=== PATIENT | female | born 1995 | race Caucasian/White ===

== ENCOUNTER 2019-04-20 06:48 | Inpatient (IN) | payer BC ==
--- NOTE | 2019-04-20 07:14 | PCM.SN ---
- Free Text/Narrative Note: 0714
[2019-04-20] MEDS ORDERED: Sodium Chloride 0.9% 10 ML Syringe FLUSH PRN (07:36)
[2019-04-20] MEDS ORDERED: Nalbuphine 10 MG/ML Syringe IVPUSH PRN (07:36)
[2019-04-20] MEDS ORDERED: Ondansetron 4 MG/2 ML SDV IVPUSH PRN ×2 (07:36→08:10)
--- NOTE | 2019-04-20 07:38 | PCM.LDHP ---
L&D History of Present Illness - General Date of Service: 04/20/19 Admit Problem/Dx: Patient Status Order with Admit Dx/Problem 04/20/19 07:08 Patient Status [ADT] Routine Admission Diagnosis/Problem Admission Diagnosis/Problem 37 weeks gestation of Source of Information: Patient History Limitations: Reports: No Limitations - History of Present Illness Introduction:: Patient is a 23-year-old at 37 and one sevenths weeks gestation who presents for concerns of leaking of amniotic fluid and contractions. Estimates leaking began around midnight. 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: : 1 Para: 0 LMP (Approximate): - Past Surgical History HEENT Surgical History: Reports: Tonsillectomy Social & Family History - Tobacco Use Smoking Status *Q: Never Smoker - Alcohol Use Alcohol Use History: No - Recreational Drug Use Recreational Drug Use: No H&P Review of Systems - Review of Systems: Review Of Systems: See Below General: Reports: No Symptoms Pulmonary: Reports: No Symptoms Cardiovascular: Reports: No Symptoms Gastrointestinal: Reports: Abdominal Pain Genitourinary: Reports: No Symptoms Musculoskeletal: Reports: No Symptoms Psychiatric: Reports: No Symptoms Neurological: Reports: No Symptoms L&D Exam - Exam Exam: See Below - OB Specific Contraction Intensity: Moderate to Strong Movement: Active Heart Tones: Present Heart Tones per Min: 135 Heart Rate (FHR) Variability: Moderate (6-25 bmp) - Caro Score Caro Score Cervix Position: Anterior Caro Score Consistency: Soft Caro Score Effacement: >80% Caro Score Dilation: 3-4 cm Caro Score 's Station: -2 Caro Score Total: 10 - Exam General: Alert, Oriented, Cooperative Lungs: Clear to Auscultation, Normal Respiratory Effort Cardiovascular: Regular Rate, Regular Rhythm GI/Abdominal Exam: Soft, Non-Tender Genitourinary: Normal external exam Extremities: Normal Inspection Skin: Warm, Dry, Intact - Patient Data Result Diagrams: 04/20/19 07:52 - Problem List (1) 37 weeks gestation of SNOMED Code(s): 98985709 ICD Code: Z3A.37 - 37 WEEKS GESTATION OF Status: Acute Current Visit: Yes (2) Spontaneous rupture of membranes SNOMED Code(s): 418597480 ICD Code: QUK4878 - Status: Acute Current Visit: Yes (3) Rh negative state in antepartum period SNOMED Code(s): 224094946 ICD Code: O26.899 - OTH RELATED CONDITIONS, UNSPECIFIED TRIMESTER; Z67.91 - UNSPECIFIED BLOOD TYPE, RH NEGATIVE Status: Acute Current Visit: Yes (4) Rubella non-immune status, antepartum SNOMED Code(s): 902905652 ICD Code: O99.89 - OTH DISEASES AND CONDITIONS COMPL PREG/CHLDBRTH; Z28.3 - UNDERIMMUNIZATION STATUS Status: Acute Current Visit: Yes Problem List Initiated/Reviewed/Updated: Yes Orders Last 24hrs: Active Orders 24 hr Category Date Time Status Patient Status [ADT] Routine ADT 04/20/19 07:08 Active Activity as Tolerated [RC] PFP Care 04/20/19 07:36 Ordered Communication Order [RC] ASDIRECTED Care 04/20/19 07:36 Ordered Heart Tones [RC] ASDIRECTED Care 04/20/19 07:37 Ordered Non Stress Test [RC] PER UNIT ROUTINE Care 04/20/19 07:08 Active Notify Provider [RC] PFP Care 04/20/19 07:36 Ordered Notify Provider [RC] PRN Care 04/20/19 07:36 Ordered Peripheral IV Care [RC] . DIRECTED Care 04/20/19 07:37 Ordered Vital Signs [RC] PER UNIT ROUTINE Care 04/20/19 07:08 Active Vital Signs [RC] PER UNIT ROUTINE Care 04/20/19 07:36 Ordered Regular Diet [DIET] Diet 04/20/19 Breakfast Active AMNISURE RUPTURE MEMBRAN [BF] Routine Lab 04/20/19 07:25 Received CBC W/O DIFF,HEMOGRAM [HEME] Routine Lab 04/20/19 07:36 Ordered RAPID PLASMA REAGIN,RPR [CHEM] Routine Lab 04/20/19 07:36 Ordered TYPE AND SCREEN [BBK] Routine Lab 04/20/19 07:36 Ordered Lactated Ringers [Ringers, Lactated] 1,000 ml Med 04/20/19 07:45 Ordered IV ASDIRECTED Nalbuphine [Nubain] Med 04/20/19 07:36 Ordered 10 mg IVPUSH Q2H PRN Ondansetron [Zofran] Med 04/20/19 07:36 Ordered 4 mg IVPUSH Q4H PRN Oxytocin/Lactated Ringers [Pitocin in LR 10 Units/1,000 Med 04/20/19 07:45 Ordered ML] 10 unit in 1,000 ml IV .CONTINUOUS Sodium Chloride 0.9% [Saline Flush] Med 04/20/19 07:36 Ordered 10 ml FLUSH ASDIRECTED PRN Electronic Heart Tones Ext w TOCO [WOMSER] Ot 04/20/19 07:36 Ordered Routine Electronic Heart Tones Internal [WOMSER] Per Unit Ot 04/20/19 07:36 Ordered Routine Peripheral IV Insertion Adult [OM.PC] Routine Ot 04/20/19 07:36 Ordered Resuscitation Status Routine Resus Stat 04/20/19 07:08 Ordered Assessment/Plan Comment:: Amnisure done and positive. Will admit for labor. GBS negative. No need for antibiotics. Labs to be done. Patient desires epidural. Anticipate . Will assess need for RhoGAM following delivery. MMR prior to discharge
[2019-04-20] MEDS ORDERED: Oxytocin/Lactated Ringers 10 UNIT/1,000 ML BAG IV SCH (07:45)
[2019-04-20] MEDS: Lactated Ringers 1,000 ML IV SCH ×2 (08:00→08:50)
[2019-04-20] MEDS ORDERED: fentaNYL 100 MCG/2 ML SDV EPIDUR PRN (08:10)
[2019-04-20] MEDS ORDERED: ePHEDrine 50 MG/ML SDV IVPUSH PRN (08:10)
[2019-04-20] MEDS ORDERED: diphenhydrAMINE 50 MG/ML SDV IVPUSH PRN (08:10)
[2019-04-20] MEDS ORDERED: fentaNYL/Bupivacaine/NS 2 MCG-0.125% 250 ML EPIDUR PRN (08:10)
--- NOTE | 2019-04-20 08:20 | PCM.PREANE ---
Preanesthetic Assessment - Procedure Proposed Procedure: THUY - Anesthesia/Transfusion/Family Hx Anesthesia History: Prior Anesthesia Without Reaction Family History of Anesthesia Reaction: No Transfusion History: No Prior Transfusion(s) Intubation History: Unknown - Review of Systems General: No Symptoms Pulmonary: No Symptoms Cardiovascular: No Symptoms Gastrointestinal: Nausea, Vomiting Neurological: No Symptoms Other: Reports: None - Physical Assessment NPO Status Date: 04/20/19 NPO Status Time: 08:17 Height: 1.68 m Weight: 67.585 kg ASA Class: 2 Mental Status: Alert & Oriented x3 Airway Class: Mallampati = 1 Dentition: Reports: Normal Dentition (permanent braces ) Thyro-Mental Finger Breadths: 3 Mouth Opening Finger Breadths: 5 ROM/Head Extension: Full Lungs: Clear to Auscultation, Normal Respiratory Effort Cardiovascular: Regular Rate, Regular Rhythm - Lab Values: Laboratory Last Values WBC 19.00 K/mm3 (3.98-10.04) H 04/20/19 07:52 RBC 4.33 M/mm3 (3.98-5.22) 04/20/19 07:52 Hgb 11.6 gm/dl (11.2-15.7) 04/20/19 07:52 Hct 35.9 % (34.1-44.9) 04/20/19 07:52 MCV 82.9 fl (79.4-94.8) 04/20/19 07:52 MCH 26.8 pg (25.6-32.2) 04/20/19 07:52 MCHC 32.3 g/dl (32.2-35.5) 04/20/19 07:52 RDW Std Deviation 39.8 fL (36.4-46.3) 04/20/19 07:52 Plt Count 294 K/mm3 (182-369) 04/20/19 07:52 MPV 11.9 fl (9.4-12.3) 04/20/19 07:52 Membrane Rupture Positive H 04/20/19 07:25 - Allergies Allergies/Adverse Reactions: Allergies Allergy/AdvReac Type Severity Reaction Status Date / Time No Known Allergies Allergy Verified 04/17/19 06:42 - Blood Blood Available: No - Anesthesia Plan Pre-Op Medication Ordered: None - Acknowledgements Anesthesia Type Planned: Epidural Pt an Appropriate Candidate for the Planned Anesthesia: Yes Alternatives and Risks of Anesthesia Discussed w Pt/Guardian: Yes Pt/Guardian Understands and Agrees with Anesthesia Plan: Yes PreAnesthesia Questionnaire - HOME MEDS Home Medications: Home Meds No122/Iron/Folic Acid [ Multi Tablet] 1 each PO DAILY 04/17/19 [History] - CURRENT (IN HOUSE) MEDS Current Meds: Current Medications Diphenhydramine HCl (Benadryl) 25 mg IVPUSH Q6H PRN PRN Reason: pruritis Ephedrine Sulfate (Ephedrine Sulfate) 5 mg IVPUSH ASDIRECTED PRN PRN Reason: Hypotension Fentanyl (Sublimaze) 100 mcg EPIDUR Q3H PRN PRN Reason: Pain Fentanyl/Bupivacaine HCl (Fentanyl/Bupivacaine/Ns 2 Mcg-0.125% 250 Ml) 250 ml EPIDUR CONTINUOUS PRN PRN Reason: Pain Lactated Ringer's (Ringers, Lactated) 1,000 mls @ 100 mls/hr IV ASDIRECTED MERVIN Oxytocin/Lactated Ringer's (Pitocin In Lr 10 Units/1,000 Ml) 10 unit in 1,000 mls @ 500 mls/hr IV .CONTINUOUS MERVIN Nalbuphine HCl (Nubain) 10 mg IVPUSH Q2H PRN PRN Reason: Pain Ondansetron HCl (Zofran) 4 mg IVPUSH Q4H PRN PRN Reason: Nausea/Vomiting Ondansetron HCl (Zofran) 4 mg IVPUSH ONETIME PRN PRN Reason: Nausea/Vomiting Sodium Chloride (Saline Flush) 10 ml FLUSH ASDIRECTED PRN PRN Reason: Keep Vein Open
--- NOTE | 2019-04-20 12:15 | PCM.DEL ---
L & D Note - General Info Date of Service: 04/20/19 - Delivery Note Labor: Spontaneous Delivery Outcome: Livebirth Delivery Method: Spontaneous Vaginal Delivery-Single Delivery Mode: Spontaneous Presentation: Right Occiput Anterior (ANDRES) Nuchal Cord: None, Reduced Anesthesia Type: Epidural Amniotic Fluid Description: Clear Episiotomy Type: None Laceration: 2nd Degree Suture type: Vicryl Suture size: 2-0 Placenta: Intact, Spontaneous Cord: 3 Vessels Estimated Blood Loss: 200 : Bulb Syringe, Stimulated, [place] Used, Warmer Used Delivery Comments (Free Text/Narrative):: Patient found to be complete and began pushing. With maternal pushing effort head delivered from an ANDRES presentation. Nuchal cord present and reduced. With gentle downward traction the shoulders and body delivered. Infant placed on maternal abdomen. Cord clamped and cut. Cord blood obtained. Placenta allowed time to separate and expelled intact. Inspection of the perineum showed a 2nd degree laceration which was repaired with a 2-0 vicryl in the typical fashion - General Info Date of Service: 04/20/19 - Patient Data Vitals - Most Recent: Last Vital Signs Temp 36.7 C 04/20/19 07:08 Pulse 79 04/20/19 07:08 Resp 15 04/20/19 07:08 BP 135/64 04/20/19 07:08 Pulse Ox 100 04/20/19 07:08 Weight - Most Recent: 67.585 kg - Problem List & Annotations (1) 37 weeks gestation of SNOMED Code(s): 14136918 Code(s): Z3A.37 - 37 WEEKS GESTATION OF Status: Acute Current Visit: Yes (2) Spontaneous rupture of membranes SNOMED Code(s): 884728610 Code(s): ANK6303 - Status: Acute Current Visit: Yes (3) Rh negative state in antepartum period SNOMED Code(s): 337805449 Code(s): O26.899 - OTH RELATED CONDITIONS, UNSPECIFIED TRIMESTER; Z67.91 - UNSPECIFIED BLOOD TYPE, RH NEGATIVE Status: Acute Current Visit: Yes (4) Rubella non-immune status, antepartum SNOMED Code(s): 733504613 Code(s): O99.89 - OTH DISEASES AND CONDITIONS COMPL PREG/CHLDBRTH; Z28.3 - UNDERIMMUNIZATION STATUS Status: Acute Current Visit: Yes (5) Vaginal delivery SNOMED Code(s): 530647941 Code(s): O80 - ENCOUNTER FOR FULL-TERM UNCOMPLICATED DELIVERY Status: Acute Current Visit: Yes - Problem List Review Problem List Initiated/Reviewed/Updated: Yes - My Orders Last 24 Hours: My Active Orders 04/20/19 07:08 Non Stress Test [RC] PER UNIT ROUTINE Vital Signs [RC] PER UNIT ROUTINE Resuscitation Status Routine 04/20/19 07:36 Activity as Tolerated [RC] PFP Communication Order [RC] ASDIRECTED Notify Provider [RC] PFP Notify Provider [RC] PRN Vital Signs [RC] PER UNIT ROUTINE Nalbuphine [Nubain] 10 mg IVPUSH Q2H PRN Ondansetron [Zofran] 4 mg IVPUSH Q4H PRN Sodium Chloride 0.9% [Saline Flush] 10 ml FLUSH ASDIRECTED PRN Electronic Heart Tones Ext w TOCO [WOMSER] Routine Electronic Heart Tones Internal [WOMSER] Per Unit Routine Peripheral IV Insertion Adult [OM.PC] Routine 04/20/19 07:37 Heart Tones [RC] ASDIRECTED Peripheral IV Care [RC] . DIRECTED 04/20/19 07:45 Lactated Ringers [Ringers, Lactated] 1,000 ml IV ASDIRECTED Oxytocin/Lactated Ringers [Pitocin in LR 10 Units/1,000 ML] 10 unit in 1,000 ml IV .CONTINUOUS 04/20/19 07:52 ANTIBODY IDENTIFICATION [BBK] Routine RAPID PLASMA REAGIN,RPR [CHEM] Routine TYPE AND SCREEN [BBK] Routine 04/20/19 10:06 Admission Status [Patient Status] [ADT] Routine 04/20/19 Breakfast Regular Diet [DIET] - Assessment Assessment:: PPD#0 from - Plan Plan:: Routine cares Breast feeding Will assess baby blood type to see if additional Rhogam required. MMR prior to discharge Discharge home in 1-2 days
[2019-04-20] MEDS ORDERED: Witch Hazel Medicated Pads 40/Jar TOP PRN (12:31)
[2019-04-20] MEDS: Benzocaine/Menthol 20%-0.5% Spray 56 GM Canister TOP PRN ×2 (14:16→20:40)
[2019-04-20] MEDS ORDERED: Measles, Mumps & Rubella Vaccine 0.5 ML SDV SUBCUT ONE (17:38)
[2019-04-20] MEDS: Acetaminophen 325 MG Tab PO PRN (17:44)
[2019-04-20] MEDS: Ibuprofen 600 MG Tab PO PRN (20:41)
[2019-04-21] MEDS: Ibuprofen 600 MG Tab PO PRN ×3 (03:33→22:43)
--- NOTE | 2019-04-21 07:25 | PCM.PNPP ---
- General Info Date of Service: 04/21/19 Functional Status: Reports: Pain Controlled, Tolerating Diet, Ambulating, Urinating - Review of Systems General: Reports: No Symptoms Pulmonary: Reports: No Symptoms Cardiovascular: Reports: No Symptoms Gastrointestinal: Reports: No Symptoms Genitourinary: Reports: No Symptoms Musculoskeletal: Reports: No Symptoms Neurological: Reports: No Symptoms - Patient Data Vital Signs - Most Recent: Last Vital Signs Temp 36.8 C 04/21/19 03:25 Pulse 81 04/21/19 03:25 Resp 16 04/20/19 20:21 BP 111/56 L 04/21/19 03:25 Pulse Ox 97 04/21/19 03:25 Weight - Most Recent: 67.585 kg I&O - Last 24 Hours: Intake & Output 04/20/19 04/21/19 04/21/19 22:59 06:59 14:59 Intake Total 480 Balance 480 Lab Results - Last 24 Hours: Laboratory Results - last 24 hr 04/20/19 04/20/19 04/20/19 Range/Units 07:25 07:52 07:52 WBC 19.00 H (3.98-10.04) K/mm3 RBC 4.33 (3.98-5.22) M/mm3 Hgb 11.6 (11.2-15.7) gm/dl Hct 35.9 (34.1-44.9) % MCV 82.9 (79.4-94.8) fl MCH 26.8 (25.6-32.2) pg MCHC 32.3 (32.2-35.5) g/dl RDW Std Deviation 39.8 (36.4-46.3) fL Plt Count 294 (182-369) K/mm3 MPV 11.9 (9.4-12.3) fl Membrane Rupture Positive H RPR Non-reactive (NONREACTIVE) Blood Type Gel Antibody Screen 04/20/19 Range/Units 07:52 WBC (3.98-10.04) K/mm3 RBC (3.98-5.22) M/mm3 Hgb (11.2-15.7) gm/dl Hct (34.1-44.9) % MCV (79.4-94.8) fl MCH (25.6-32.2) pg MCHC (32.2-35.5) g/dl RDW Std Deviation (36.4-46.3) fL Plt Count (182-369) K/mm3 MPV (9.4-12.3) fl Membrane Rupture RPR (NONREACTIVE) Blood Type O NEGATIVE Gel Antibody Screen Positive Med Orders - Current: Current Medications Acetaminophen (Tylenol) 650 mg PO Q4H PRN PRN Reason: mild pain or fever Last Admin: 04/20/19 17:44 Dose: 650 mg Benzocaine/Menthol (Dermoplast Pain Relief [place]) 0 gm TOP ASDIRECTED PRN PRN Reason: Perineal Comfort Measure Last Admin: 04/20/19 20:40 Dose: 1 can Docusate Sodium (Colace) 100 mg PO BID PRN PRN Reason: Constipation Ibuprofen (Motrin) 600 mg PO Q6H PRN PRN Reason: Mild pain or fever Last Admin: 04/21/19 03:33 Dose: 600 mg Witch Irasema (Tucks) 1 pad TOP ASDIRECTED PRN PRN Reason: Perineal Comfort Measure Last Admin: 04/20/19 14:16 Dose: 1 container Discontinued Medications Diphenhydramine HCl (Benadryl) 25 mg IVPUSH Q6H PRN PRN Reason: pruritis Ephedrine Sulfate (Ephedrine Sulfate) 5 mg IVPUSH ASDIRECTED PRN PRN Reason: Hypotension Last Admin: 04/20/19 09:18 Dose: 5 mg Fentanyl (Sublimaze) 100 mcg EPIDUR Q3H PRN PRN Reason: Pain Last Admin: 04/20/19 09:08 Dose: 100 mcg Fentanyl/Bupivacaine HCl (Fentanyl/Bupivacaine/Ns 2 Mcg-0.125% 250 Ml) 250 ml EPIDUR CONTINUOUS PRN PRN Reason: Pain Last Admin: 04/20/19 09:07 Dose: 250 ml Lactated Ringer's (Ringers, Lactated) 1,000 mls @ 100 mls/hr IV ASDIRECTED MERVIN Last Admin: 04/20/19 08:50 Dose: 100 mls/hr Oxytocin/Lactated Ringer's (Pitocin In Lr 10 Units/1,000 Ml) 10 unit in 1,000 mls @ 500 mls/hr IV .CONTINUOUS MERVIN Last Admin: 04/20/19 12:00 Dose: 500 mls/hr Measles/Mumps/Rubella Vaccine Live (M-M-R Ii Vaccine) 0.5 ml SUBCUT .ONCE ONE Stop: 04/20/19 17:39 Nalbuphine HCl (Nubain) 10 mg IVPUSH Q2H PRN PRN Reason: Pain Ondansetron HCl (Zofran) 4 mg IVPUSH Q4H PRN PRN Reason: Nausea/Vomiting Ondansetron HCl (Zofran) 4 mg IVPUSH ONETIME PRN PRN Reason: Nausea/Vomiting Sodium Chloride (Saline Flush) 10 ml FLUSH ASDIRECTED PRN PRN Reason: Keep Vein Open - Infant Interaction Infant Disposition, : [place] in Room with Family Infant Interaction: Holding Feeding: Attempted ; Nursed Fair/Poor Support Person: - Recovery Exam Fundal Tone: Firm Fundal Level: 2 Fingerbreadths Below Umbilicus Fundal Placement: Midline Lochia Amount: Small, Moderate Lochia Color: Rubra/Red Perineum Description: Other (see below) Other Perinuem Description: 2nd degree repaired Episiotomy/Laceration: Approximated Bladder Status: Voiding Urinary Elimination: Voided - Exam General: Alert, Oriented, Cooperative GI/Abdominal Exam: Soft, Non-Tender Extremities: Normal Inspection Skin: Warm, Dry, Intact - Problem List & Annotations (1) 37 weeks gestation of SNOMED Code(s): 05116265 Code(s): Z3A.37 - 37 WEEKS GESTATION OF Status: Acute Current Visit: Yes (2) Spontaneous rupture of membranes SNOMED Code(s): 695313667 Code(s): OBC9066 - Status: Acute Current Visit: Yes (3) Rh negative state in antepartum period SNOMED Code(s): 265359721 Code(s): O26.899 - OTH RELATED CONDITIONS, UNSPECIFIED TRIMESTER; Z67.91 - UNSPECIFIED BLOOD TYPE, RH NEGATIVE Status: Acute Current Visit: Yes (4) Rubella non-immune status, antepartum SNOMED Code(s): 388226060 Code(s): O99.89 - OTH DISEASES AND CONDITIONS COMPL PREG/CHLDBRTH; Z28.3 - UNDERIMMUNIZATION STATUS Status: Acute Current Visit: Yes (5) Vaginal delivery SNOMED Code(s): 584459322 Code(s): O80 - ENCOUNTER FOR FULL-TERM UNCOMPLICATED DELIVERY Status: Acute Current Visit: Yes - Problem List Review Problem List Initiated/Reviewed/Updated: Yes - My Orders Last 24 Hours: My Active Orders 04/20/19 07:08 Resuscitation Status Routine 04/20/19 07:36 Vital Signs [RC] PER UNIT ROUTINE 04/20/19 07:37 Heart Tones [RC] ASDIRECTED Peripheral IV Care [RC] . DIRECTED 04/20/19 07:52 ANTIBODY IDENTIFICATION [BBK] Routine TYPE AND SCREEN [BBK] Routine 04/20/19 12:31 Activity as Tolerated [RC] PER UNIT ROUTINE Vital Signs [RC] 09,15,21,03 Acetaminophen [Tylenol] 650 mg PO Q4H PRN Benzocaine/Menthol [Dermoplast Pain Relief [place]] See Dose Instructions TOP ASDIRECTED PRN Docusate Sodium [Colace] 100 mg PO BID PRN Ibuprofen [Motrin] 600 mg PO Q6H PRN Witch Irasema [Tucks] 1 pad TOP ASDIRECTED PRN Assess Lochia [WOMSER] Per Unit Routine Assess Uterine Involution [WOMSER] Per Unit Routine Breast Pump [WOMSER] Per Unit Routine Heat Therapy [OM.PC] PRN Ice Therapy [OM.PC] Per Unit Routine Perineal Care [OM.PC] Per Unit Routine Peripheral IV Discontinue [OM.PC] Routine Sitz Bath [OM.PC] Per Unit Routine 04/20/19 17:38 Vaccines to be Administered [RC] PER UNIT ROUTINE 04/20/19 Lunch Regular Diet [DIET] 04/21/19 12:31 Heat Therapy [OM.PC] PRN - Assessment Assessment:: PPD#1 from - Plan Plan:: Routine cares Breast feeding baby Rh negative, no need for additional Rhogam MMR prior to discharge Discharge home tomorrow
--- NOTE | 2019-04-21 07:48 | PCM48HPAN ---
Post Anesthesia Note - EVALUATION WITHIN 48HRS OF ANESTHETIC Vital Signs in Normal Range: Yes Patient Participated in Evaluation: Yes Respiratory Function Stable: Yes Airway Patent: Yes Cardiovascular Function Stable: Yes Hydration Status Stable: Yes Pain Control Satisfactory: Yes Nausea and Vomiting Control Satisfactory: Yes Mental Status Recovered: Yes Vital Signs: Last Vital Signs Temp 36.8 C 04/21/19 03:25 Pulse 81 04/21/19 03:25 Resp 16 04/20/19 20:21 BP 111/56 L 04/21/19 03:25 Pulse Ox 97 04/21/19 03:25 - COMMENTS/OBSERVATIONS Free Text/Narrative:: no anesthesia complications noted
[2019-04-21] MEDS: Docusate Sodium 100 MG Cap PO PRN ×2 (08:54→21:00)
[2019-04-21] MEDS: Acetaminophen 325 MG Tab PO PRN (08:54)
--- NOTE | 2019-04-22 08:39 | PCM.DCSUM1 ---
Discharge Summary - Hospital Course Free Text/Narrative:: 23-year-old 1 now para 1001 white female who was admitted 2 days ago in active labor with spontaneous rupture membranes. She went on to have a relatively normal labor with spontaneous vaginal delivery area the nuchal cord was noted and reduced over the baby's head. She had an epidural for pain control. She had a second-degree laceration which was repaired in routine fashion. This enabled us was 200 mL. Patient is breast-feeding at the present time. She has had an unremarkable recovery. She is desiring discharge home. Diagnosis: Stroke: No - Discharge Data Discharge Date: 04/22/19 Discharge Disposition: Home, Self-Care 01 Condition: Good - Referral to Home Health Primary Care Physician: Tana Bee MD - Patient Instructions Diet: Regular Diet as Tolerated (Nursing diet was increased calories calcium is recommended) Activity: As Tolerated (No intercourse tampons until bleeding resolves) Driving: May Drive Today, Do Not Drive Showering/Bathing: May Shower (May take a bath) Notify Provider of: Fever, Increased Pain, Swelling and Redness, Nausea and/or Vomiting - Discharge Plan Home Medications: Home Meds No122/Iron/Folic Acid [ Multi Tablet] 1 each PO DAILY 04/17/19 [History] Ibuprofen [Motrin] 600 mg PO Q6H PRN tablet 04/22/19 [Rx] Referrals: Tana Bee MD [Primary Care Provider] - (Patient to call for appointment for return to clinic with Dr. MARIE) - Discharge Summary/Plan Comment DC Time >30 min.: No Discharge Summary/Plan Comment: Discharge instructions: 1. Discharge home 2. Diet, activity and follow-up discussed with patient. Recommend nursing diet with increased calories and calcium. 3. Precautions given concern increased pain, bleeding, temperature, signs/ symptoms of DVT/PE. 4. Medications per home medication was printed, discussed with and given to the patient. 5. Return to clinic-Dr. Bee at [facility] in 2 weeks. Diagnosis: Term -delivered Condition: Good - Patient Data Vitals - Most Recent: Last Vital Signs Temp 36.7 C 04/21/19 15:36 Pulse 74 04/22/19 03:42 Resp 15 04/22/19 03:42 BP 100/49 L 04/22/19 03:42 Pulse Ox 97 04/22/19 03:42 Weight - Most Recent: 67.585 kg I&O - Last 24 hours: Intake & Output 04/21/19 04/22/19 04/22/19 22:59 06:59 14:59 Intake Total 660 Balance 660 Med Orders - Current: Current Medications Acetaminophen (Tylenol) 650 mg PO Q4H PRN PRN Reason: mild pain or fever Last Admin: 04/21/19 08:54 Dose: 650 mg Benzocaine/Menthol (Dermoplast Pain Relief [place]) 0 gm TOP ASDIRECTED PRN PRN Reason: Perineal Comfort Measure Last Admin: 04/20/19 20:40 Dose: 1 can Docusate Sodium (Colace) 100 mg PO BID PRN PRN Reason: Constipation Last Admin: 04/21/19 21:00 Dose: 100 mg Ibuprofen (Motrin) 600 mg PO Q6H PRN PRN Reason: Mild pain or fever Last Admin: 04/21/19 22:43 Dose: 600 mg Witch Irasema (Tucks) 1 pad TOP ASDIRECTED PRN PRN Reason: Perineal Comfort Measure Last Admin: 04/20/19 14:16 Dose: 1 container Discontinued Medications Diphenhydramine HCl (Benadryl) 25 mg IVPUSH Q6H PRN PRN Reason: pruritis Ephedrine Sulfate (Ephedrine Sulfate) 5 mg IVPUSH ASDIRECTED PRN PRN Reason: Hypotension Last Admin: 04/20/19 09:18 Dose: 5 mg Fentanyl (Sublimaze) 100 mcg EPIDUR Q3H PRN PRN Reason: Pain Last Admin: 04/20/19 09:08 Dose: 100 mcg Fentanyl/Bupivacaine HCl (Fentanyl/Bupivacaine/Ns 2 Mcg-0.125% 250 Ml) 250 ml EPIDUR CONTINUOUS PRN PRN Reason: Pain Last Admin: 04/20/19 09:07 Dose: 250 ml Lactated Ringer's (Ringers, Lactated) 1,000 mls @ 100 mls/hr IV ASDIRECTED MERVIN Last Admin: 04/20/19 08:50 Dose: 100 mls/hr Oxytocin/Lactated Ringer's (Pitocin In Lr 10 Units/1,000 Ml) 10 unit in 1,000 mls @ 500 mls/hr IV .CONTINUOUS MERVIN Last Admin: 04/20/19 12:00 Dose: 500 mls/hr Measles/Mumps/Rubella Vaccine Live (M-M-R Ii Vaccine) 0.5 ml SUBCUT .ONCE ONE Stop: 04/20/19 17:39 Last Admin: 04/21/19 11:24 Dose: 0.5 ml Nalbuphine HCl (Nubain) 10 mg IVPUSH Q2H PRN PRN Reason: Pain Ondansetron HCl (Zofran) 4 mg IVPUSH Q4H PRN PRN Reason: Nausea/Vomiting Ondansetron HCl (Zofran) 4 mg IVPUSH ONETIME PRN PRN Reason: Nausea/Vomiting Sodium Chloride (Saline Flush) 10 ml FLUSH ASDIRECTED PRN PRN Reason: Keep Vein Open
== END 2019-04-22 13:25 | disposition home or self-care (01) | DRG 560 ==
LOC: JD.OBCHECK 06:48 → JD.OB 06:51 → JD.OBCHECK 07:08 → JD.OB 07:08 → OBSVTOIN 12:15 → JD.OB 12:16
PROVIDERS: ADMIT Obstetrics & Gynecology; ATTEND Obstetrics & Gynecology
PROC: 10E0XZZ Delivery of Products of Conception, External Approach (ICD-10-PCS; principal; 2019-04-20)
PROC: 0KQM0ZZ Repair Perineum Muscle, Open Approach (ICD-10-PCS; 2019-04-20)
PROC: 3E0R3BZ Introduction of Anesthetic Agent into Spinal Canal, Percutaneous Approach (ICD-10-PCS; 2019-04-20)
PROC: 3E0234Z Introduction of Serum, Toxoid and Vaccine into Muscle, Percutaneous Approach (ICD-10-PCS; 2019-04-21)
DX: O69.81X0 Labor and delivery complicated by cord around neck, without compression, not applicable or unspecified (principal); Z37.0 Single live birth; O70.1 Second degree perineal laceration during delivery; Z3A.37 37 weeks gestation of pregnancy; Z23 Encounter for immunization
CPT/HCPCS: 36415; 51701; 59025; 59409; 84112; 85027; 86592; 86850; 86870; 86900; 86901; 90471; 90707; A9270-GY; J2590; J3010; J7120

== ENCOUNTER 2019-08-01 00:15 | Emergency (ER) | payer BC ==
[2019-08-01] MEDS ORDERED: Tamsulosin 0.4 MG Cap.ER PO ONE (00:55)
[2019-08-01] MEDS ORDERED: HYDROmorphone 0.5 MG/0.5 ML Syringe IVPUSH ONE (00:55)
[2019-08-01] MEDS ORDERED: Ketorolac 30 MG/ML SDV IVPUSH STA (00:55)
[2019-08-01] MEDS ORDERED: Ondansetron 4 MG/2 ML SDV IVPUSH ONE (00:55)
[2019-08-01] MEDS ORDERED: Sodium Chloride 0.9% 1,000 ML IV SCH (01:00)
--- NOTE | 2019-08-01 01:00 | EDM.PDOC ---
ED HPI GENERAL MEDICAL PROBLEM - General Chief Complaint: Flank Pain Stated Complaint: DIZZY CHILLS KIDNEY AREA PAIN Time Seen by Provider: 08/01/19 00:45 Source of Information: Reports: Patient History Limitations: Reports: No Limitations - History of Present Illness INITIAL COMMENTS - FREE TEXT/NARRATIVE: Ms. Marrero is a very pleasant 23-year-old woman with no chronic medical issues, on no medications, who states that she was woken around 22:30 with severe left flank pain. She describes the pain as crampy in character, and states that it is constant. It does not radiate. It is made worse if she moves or lies in the left decubitus position. She took 1 Tylenol around 22:40 and also took a hot bath, with minimal improvement in her symptoms. She states that she vomited en route the ED. No prior similar symptoms. The patient denies recent fever, chills, sore throat, ear pain, nasal or sinus congestion, cough, dyspnea, chest pain, palpitations, nausea, vomiting, constipation, diarrhea, abdominal pain, urinary symptoms, recent weight gain or weight loss, recent bloody bowel movements or black bowel movements, recent joint aches, headaches, or rashes. Here in the ED, the patient is found to be hemodynamically stable, afebrile, saturating 100% on room air. She appears to be quite uncomfortable. The patient does not have a PCP. Her Animal Care Giver is Dr. Tana Gardner. She did not receive an influenza vaccine this season, and declined an offer to receive one here today. Left Flank Pain Score (Numeric/FACES): 8 - Related Data Allergies Allergy/AdvReac Type Severity Reaction Status Date / Time No Known Allergies Allergy Verified 08/01/19 00:28 Home Meds: Home Meds Acetaminophen/HYDROcodone [[place] 325-5 MG] 1 - 2 tab PO Q6H PRN #20 tablet 07/31 [Rx] Nitrofurantoin Macrocrystal [Nitrofurantoin] 1 cap PO Q12H #9 capsule 08/01/19 [ Rx] Ondansetron [Zofran ODT] 1 tab PO Q8H PRN #10 tab.dis 08/01/19 [Rx] Tamsulosin HCl [Flomax] 1 cap PO QAM PRN #7 cap.er.24h 08/01/19 [Rx] Past Medical History - Past Surgical History HEENT Surgical History: Reports: Tonsillectomy Social & Family History - Family History Family Medical History: Unobtainable - Tobacco Use Smoking Status *Q: Never Smoker Second Hand Smoke Exposure: No - Caffeine Use Caffeine Use: Reports: Coffee - Alcohol Use Alcohol Use History: No - Recreational Drug Use Recreational Drug Use: No - Living Situation & Occupation Living situation: Reports: Single, with Significant Other (Fianc), with Family (Daughter) Occupation: Employed (clinical education specialist, [employer]) ED ROS GENERAL - Review of Systems Review Of Systems: Comprehensive ROS is negative, except as noted in HPI. ED EXAM, RENAL/ - Physical Exam Exam: See Below Exam Limited By: No Limitations General Appearance: Alert, Mild Distress (appears uncomfortable), Thin Eye Exam: Bilateral Eye: EOMI, Normal Inspection Ears: Normal External Exam, Hearing Grossly Normal Nose: Normal Inspection Throat/Mouth: Normal Inspection, Normal Lips, Normal Voice, No Airway Compromise Head: Atraumatic, Normocephalic Neck: Normal Inspection, Full Range of Motion Respiratory/Chest: No Respiratory Distress, Lungs Clear, Normal Breath Sounds, No Accessory Muscle Use Cardiovascular: Normal Peripheral Pulses, Regular Rate, Rhythm, No Edema, No Gallop, No JVD, No Murmur, No Rub GI/Abdominal: Normal Bowel Sounds, Soft, No Organomegaly, No Distention, No Abnormal Bruit, No Mass, Tender (Palpation of the left lower quadrant induces pain in the left flank, but no actual abdominal tenderness.) (Female) Exam: Deferred Rectal (Female) Exam: Deferred Back Exam: Normal Inspection, Full Range of Motion, CVA Tenderness (L). No: CVA Tenderness (R) Extremities: Normal Inspection, Normal Range of Motion, No Pedal Edema, Normal Capillary Refill Neurological: Alert, Oriented, Normal Cognition, No Motor/Sensory Deficits Psychiatric: Normal Affect Skin Exam: Warm, Dry, Intact, Normal Color, No Rash Course - Vital Signs Last Recorded V/S: Last Vital Signs Temp 36.4 C 08/01/19 00:26 Pulse 72 08/01/19 00:26 Resp 16 08/01/19 00:26 BP 123/58 L 08/01/19 00:26 Pulse Ox 100 08/01/19 00:26 - Orders/Labs/Meds Orders: Active Orders 24 hr Category Date Time Status Strain Urine [RC] ASDIRECTED Care 08/01/19 04:10 Ordered Abdomen Pelvis wo Cont [CT] Stat Exams 08/01/19 00:55 Taken CULTURE URINE [RM] Stat Lab 08/01/19 04:06 Ordered Sodium Chloride 0.9% [Normal Saline] 1,000 ml Med 08/01/19 01:00 Active IV ASDIRECTED Medication Orders Sodium Chloride (Normal Saline) 1,000 mls @ 150 mls/hr IV ASDIRECTED MERVIN Last Admin: 08/01/19 01:04 Dose: 150 mls/hr Labs: Laboratory Tests 08/01/19 08/01/19 Range/Units 00:30 03:48 HCG, Qual Negative (NEGATIVE) Urine Color Dark yellow (Yellow) Urine Appearance Cloudy H (Clear) Urine pH 6.0 (5.0-8.0) Ur Specific [place] > or = 1.030 (1.005-1.030) Urine Protein 2+ H (Negative) Urine Glucose (UA) Negative (Negative) Urine Ketones 3+ H (Negative) Urine Occult Blood Negative (Negative) Urine Nitrite Negative (Negative) Urine Bilirubin 1+ H (Negative) Urine Urobilinogen 0.2 (0.2-1.0) Ur Leukocyte Esterase 1+ H (Negative) Urine RBC 0-5 (0-5) /hpf Urine WBC 5-10 H (0-5) /hpf Ur Squamous Epith Cells 5-10 H (0-5) /hpf Amorphous Sediment Few H (NOT SEEN) /hpf Urine Bacteria Moderate H (FEW) /hpf Urine Mucus Many H (FEW) /hpf Meds: Medications Generic Name Dose Route Start Last Admin Trade Name Freq PRN Reason Stop Dose Admin Sodium Chloride 1,000 mls @ 150 mls/hr 08/01/19 01:00 08/01/19 01:04 Normal Saline IV 150 mls/hr ASDIRECTED MERVIN Administration Discontinued Medications Generic Name Dose Route Start Last Admin Trade Name Freq PRN Reason Stop Dose Admin Hydromorphone HCl 0.5 mg 08/01/19 00:55 08/01/19 01:05 Dilaudid IVPUSH 08/01/19 00:56 0.5 mg ONETIME ONE Administration Ketorolac Tromethamine 30 mg 08/01/19 00:55 08/01/19 01:05 Toradol IVPUSH 08/01/19 00:56 30 mg ONETIME STA Administration Nitrofurantoin Macrocrystals 100 mg 08/01/19 04:09 Macrobid PO 08/01/19 04:10 ONETIME STA Ondansetron HCl 4 mg 08/01/19 00:55 08/01/19 01:05 Zofran IVPUSH 08/01/19 00:56 4 mg ONETIME ONE Administration Tamsulosin HCl 0.4 mg 08/01/19 00:55 Flomax PO 08/01/19 00:56 ONETIME ONE - Re-Assessments/Exams Free Text/Narrative Re-Assessment/Exam: 08/01/19 00:57 The patient's history and physical exam are strongly suggestive of a left ureterolith. I have ordered a urinalysis, urine test, and a CT of the abdomen and pelvis without contrast to evaluate. In the meantime, the patient will be treated with IV Dilaudid, oral Flomax, IV Toradol, IV Zofran, and IV fluid. 08/01/19 02:34 The patient's serum qualitative hCG is negative. CT of the abdomen and pelvis without contrast as read by [facility] as "3 mm obstructing stone at the left ureteral vesicle junction causing hydronephrosis of the left kidney as well as hydroureter." Her urinalysis results are still pending. 08/01/19 03:27 Test results discussed with the patient. At 3 mm, the patient will most likely pass the stone on her own. The patient has not yet provided a urine sample, and before I discharge her home, I want to be certain that she does not have a UTI, because that would change her management. The patient will work on providing a sample. 08/01/19 04:10 The patient's urinalysis is remarkable for cloudy appearance, occult blood negative with 0-5 RBCs, 1+ leukocyte esterase with 5-10 WBCs, nitrate negative with moderate bacteria, and 5-10 squamous epithelial cells. Based on the above, I have ordered a urine culture, and will start the patient on nitrofurantoin. I will then discharge the patient home with prescriptions for [place], Flomax, Zofran, and nitrofurantoin. The patient is to stay adequately hydrated and strain all of her urine. I would like her to follow-up with Dr. Gardner in 3 days, to check on her urine culture results, and I will refer her to Urology, in the event that she is unable to pass the stone. Departure - Departure Time of Disposition: 04:15 Disposition: Home, Self-Care 01 Condition: Good Clinical Impression: Ureterolithiasis, UTI (urinary tract infection) - Discharge Information *PRESCRIPTION DRUG MONITORING PROGRAM REVIEWED*: Not Applicable *COPY OF PRESCRIPTION DRUG MONITORING REPORT IN PATIENT [place]: Not Applicable Prescriptions: Acetaminophen/HYDROcodone [[place] 325-5 MG] 1 - 2 tab PO Q6H PRN #20 tablet PRN Reason: Pain (Severe 7-10) Nitrofurantoin Macrocrystal [Nitrofurantoin] 1 cap PO Q12H #9 capsule Ondansetron [Zofran ODT] 1 tab PO Q8H PRN #10 tab.dis PRN Reason: Nausea/Vomiting Tamsulosin HCl [Flomax] 1 cap PO QAM PRN #7 cap.er.24h PRN Reason: Pain Referrals: Tana Bee MD [Physician] - Kaden James MD [Ordering Only Provider] - Forms: ED Department Discharge Additional Instructions: You were seen in the emergency room after waking up with severe left flank pain. Work-up in the ER included a urinalysis, a test, and a CT scan of your abdomen and pelvis without contrast. Your CT scan confirmed that your pain is due to a 3 mm stone located at the junction of your left ureter and bladder. Based on the size and location of the stone, you will most likely pass it on your own. We recommend that you take [id number] ibuprofen, 3 tablets (600 mg) every 8 hours, with food, [id number]. You may take 1 to 2 tablets of the opioid [place] up to every 6 hours, as needed for pain not relieved by ibuprofen. If you take [place], do not drive or operate heavy machinery for 12 hours. [place] may cause constipation, so consider taking a stool softener. Take 1 tablet of the anti-spasm medicine Flomax every morning, starting Wednesday morning, 08/02/2019. You may dissolve 1 tablet of the anti-nausea medicine Zofran on your tongue up to every 8 hours, as needed for nausea/vomiting. Stay adequately hydrated, and strain all of your urine. If you capture the stone, take it to your doctor for analysis. Your urinalysis suggest that you might have a urinary tract infection. A sample of your urine was sent for culture. You have been started on the antibiotic nitrofurantoin, and a prescription for nitrofurantoin has been provided to you. Take 1 tablet of nitrofurantoin every 12 hours, starting this evening, 08/01/2019. Finish the entire prescription unless told otherwise by your doctor. We recommend that you contact the office of your Animal Care Giver, Dr. Tana Gardner, on Wednesday morning, 08/04/2019, to have them check on your urine culture results. If the culture returns negative, you can stop taking the nitrofurantoin. If the urine culture returns positive, they can tell you if you are on the correct antibiotic or not. If you have not passed the stone after a week, please follow-up with the Urologist Jg Chiang. If any other problems, please do not hesitate to return to the ER. Sepsis Event Note - Evaluation Sepsis Screening Result: No Definite Risk - Focused Exam Vital Signs: Vital Signs Temp Pulse Resp BP Pulse Ox 08/01/19 00:26 36.4 C 72 16 123/58 L 100 Date Exam was Performed: 08/01/19 Time Exam was Performed: 04:10 - My Orders Last 24 Hours: My Active Orders 08/01/19 00:55 Abdomen Pelvis wo Cont [CT] Stat 08/01/19 01:00 Sodium Chloride 0.9% [Normal Saline] 1,000 ml IV ASDIRECTED 08/01/19 04:06 CULTURE URINE [RM] Stat 08/01/19 04:10 Strain Urine [RC] ASDIRECTED - Assessment/Plan Last 24 Hours: My Active Orders 08/01/19 00:55 Abdomen Pelvis wo Cont [CT] Stat 08/01/19 01:00 Sodium Chloride 0.9% [Normal Saline] 1,000 ml IV ASDIRECTED 08/01/19 04:06 CULTURE URINE [RM] Stat 08/01/19 04:10 Strain Urine [RC] ASDIRECTED
[2019-08-01] MEDS ORDERED: Nitrofurantoin Monohydrate/Macrocrystalline 100 MG Cap PO STA (04:09)
--- NOTE | 2019-08-01 08:37 | CT ---
CT abdomen and pelvis Technique: Multiple axial sections were obtained from above the dome of the diaphragm inferiorly through the pubic symphysis. Intravenous and oral contrast not utilized. Study has been performed as a ureteral stone protocol. Findings: Left ureter is prominent in size. This finding is caused by a 3 mm obstructing stone within the distal left ureter located near the UVJ. No other abnormal calcifications are seen along the course of the ureters. Vague calcifications are seen within the renal pyramids of both kidneys raising the possibility of medullary sponge kidney. Other findings: Visualized lung bases show nothing acute. Noncontrast appearance of the liver and spleen appear within normal limits. Adrenal glands show no nodule. Pancreas is within normal limits. Gallbladder contains no calcified gallstones. Aorta shows no aneurysm. No retroperitoneal adenopathy or mesenteric abnormalities are seen. No pelvic mass or adenopathy is seen. No free fluid or inflammatory change is identified. Appendix is questionably visualized which is normal in size. No free fluid or inflammatory change is seen. Bone window settings were reviewed which appear within normal limits for the patient's age. Impression: 1. Mildly dilated left ureter caused by a 3 mm obstructing stone within the distal left ureter at the UVJ. 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 3. Other findings believed to be normal as noted above. Diagnostic code #3 This report was dictated in MDT I agree with preliminary report from [facility], finalized on 08/01/19, 3:21 AM Central Time
== END 2019-08-01 04:40 | disposition home or self-care (01) ==
LOC: JD.ED 00:15
DX: N20.1 Calculus of ureter (principal); N39.0 Urinary tract infection, site not specified
CPT/HCPCS: 36415; 74176; 81001; 84703; 87086; 96361; 96374; 96375; 99284; A9270; J1170; J1885; J2405; J7030; 87088

== ENCOUNTER 2019-12-13 12:33 | Emergency (ER) | payer BC ==
[2019-12-13] MEDS ORDERED: Sodium Chloride 0.9% 10 ML Syringe FLUSH PRN (12:54)
--- NOTE | 2019-12-13 13:56 | EDM.PDOC ---
ED HPI GENERAL MEDICAL PROBLEM - General Chief Complaint: CLINICAL LABORATORY SCIENTIST Problem Stated Complaint: HEAVY BLEEDING ([id number] ) Time Seen by Provider: 12/13/19 12:50 Source of Information: Reports: Patient History Limitations: Reports: No Limitations - History of Present Illness INITIAL COMMENTS - FREE TEXT/NARRATIVE: Patient is a 24-year-old female, , 11 weeks gestation who presents to the emergency department with complaints of vaginal bleeding. Symptoms started around 10:00 this morning. She states initially it was some light spotting, however she did have a gush of blood prior to coming to the ER. Bleeding has not been significant enough to completely saturate a pad. She does have some mild suprapubic cramping that she states is worse with movement. She denies any low back pain. She saw her primary care provider, Dr. Gardner, last Wednesday and everything was found to be normal. She has not had an early ultrasound completed thus far. She denies any urinary symptoms. She is unsure of her blood type, however states that she did have RhoGam with her previous . Lower Abdominal Pain Score (Numeric/FACES): 3 - Related Data Allergies Allergy/AdvReac Type Severity Reaction Status Date / Time No Known Allergies Allergy Verified 08/01/19 00:28 Home Meds: Home Meds Ondansetron [Zofran ODT] 1 tab PO Q8H PRN #10 tab.dis 08/01/19 [Rx] Past Medical History CLINICAL LABORATORY SCIENTIST History: Reports: - Past Surgical History HEENT Surgical History: Reports: Tonsillectomy Social & Family History - Family History Family Medical History: Unobtainable - Tobacco Use Smoking Status *Q: Never Smoker - Caffeine Use Caffeine Use: Reports: Coffee - Living Situation & Occupation Living situation: Reports: Single, with Significant Other (Fianc), with Family (Daughter) Occupation: Employed (visitor services specialist, [employer]) ED ROS GENERAL - Review of Systems Review Of Systems: Comprehensive ROS is negative, except as noted in HPI. ED EXAM - Physical Exam Exam: See Below Exam Limited By: No Limitations General Appearance: Alert, WD/WN, No Apparent Distress Respiratory/Chest: No Respiratory Distress, Lungs Clear, Normal Breath Sounds, No Accessory Muscle Use, Chest Non-Tender Cardiovascular: Normal Peripheral Pulses, Regular Rate, Rhythm, No Edema, No Gallop, No JVD, No Murmur, No Rub (Female) Exam: Vaginal Bleeding (scant amount). No: Cervical Dilatation, Cervical Lesions, Products of Conception, Tissue Present in Cervix/Vagina, Vaginal Lesions, Vaginal Tears Heart Tones: Present Heart Tones per Min: 172 (per transabdominal u/s) Extremities: Normal Inspection, Normal Range of Motion, Non-Tender, Normal Capillary Refill, No Pedal Edema Neurological: Alert, Oriented, CN II-XII Intact, Normal Cognition, Normal Gait, Normal Reflexes, No Motor/Sensory Deficits Psychiatric: Normal Affect, Normal Mood Skin Exam: Warm, Dry, Intact, Normal Color, No Rash Course - Vital Signs Last Recorded V/S: Last Vital Signs Temp 98.4 F 12/13/19 12:46 Pulse 88 12/13/19 12:46 Resp 16 12/13/19 12:46 BP 121/67 12/13/19 12:46 Pulse Ox 97 12/13/19 12:46 - Orders/Labs/Meds Orders: Active Orders 24 hr Category Date Time Status Pelvic Exam, Set Up [RC] ASDIRECTED Care 12/13/19 13:33 Active Peripheral IV Care [RC] . DIRECTED Care 12/13/19 12:55 Active UA W/MICROSCOPIC [URIN] Stat Lab 12/13/19 14:35 Results Sodium Chloride 0.9% [Saline Flush] Med 12/13/19 12:54 Active 10 ml FLUSH ASDIRECTED PRN Peripheral IV Insertion Adult [OM.PC] Stat Oth 12/13/19 12:54 Ordered Medication Orders Sodium Chloride (Saline Flush) 10 ml FLUSH ASDIRECTED PRN PRN Reason: Keep Vein Open Last Admin: 12/13/19 14:03 Dose: 10 ml Documented by: ASAD Labs: Laboratory Tests 12/13/19 12/13/19 12/13/19 Range/Units 12:45 12:45 12:45 WBC 15.52 H (3.98-10.04) K/mm3 RBC 4.50 (3.98-5.22) M/mm3 Hgb 12.7 (11.2-15.7) gm/dl Hct 38.1 (34.1-44.9) % MCV 84.7 (79.4-94.8) fl MCH 28.2 (25.6-32.2) pg MCHC 33.3 (32.2-35.5) g/dl RDW Std Deviation 40.7 (36.4-46.3) fL Plt Count 335 (182-369) K/mm3 MPV 11.0 (9.4-12.3) fl Neut % (Auto) 77.1 H (34.0-71.1) % Lymph % (Auto) 13.3 L (19.3-51.7) % [place] % (Auto) 7.7 (4.7-12.5) % Eos % (Auto) 1.2 (0.7-5.8) Baso % (Auto) 0.4 (0.1-1.2) % Neut # (Auto) 11.98 H (1.56-6.13) K/mm3 Lymph # (Auto) 2.07 (1.18-3.74) K/mm3 [place] # (Auto) 1.19 H (0.24-0.36) K/mm3 Eos # (Auto) 0.18 (0.04-0.36) K/mm3 Baso # (Auto) 0.06 (0.01-0.08) K/mm3 Manual Slide Review Abnormal smear Sodium 133 L (136-145) mEq/L Potassium 3.8 (3.5-5.1) mEq/L Chloride 101 (98-107) mEq/L Carbon Dioxide 23 (21-32) mEq/L Anion Gap 12.8 (5-15) BUN 10 (7-18) mg/dL Creatinine 0.6 (0.55-1.02) mg/dL Est Cr Clr Drug Dosing 126.30 mL/min Estimated GFR (MDRD) > 60 (>60) mL/min BUN/Creatinine Ratio 16.7 (14-18) Glucose 116 H (74-106) mg/dL Calcium 8.6 (8.5-10.1) mg/dL Total Bilirubin 1.6 H (0.2-1.0) mg/dL AST 12 L (15-37) U/L ALT 21 (14-59) U/L Alkaline Phosphatase 66 (46-116) U/L Total Protein 7.4 (6.4-8.2) g/dl Albumin 3.5 (3.4-5.0) g/dl Globulin 3.9 gm/dL Albumin/Globulin Ratio 0.9 L (1-2) HCG, Quant 977158.0 mIU/mL Urine Color (Yellow) Urine Appearance (Clear) Urine pH (5.0-8.0) Ur Specific [place] (1.005-1.030) Urine Protein (Negative) Urine Glucose (UA) (Negative) Urine Ketones (Negative) Urine Occult Blood (Negative) Urine Nitrite (Negative) Urine Bilirubin (Negative) Urine Urobilinogen (0.2-1.0) Ur Leukocyte Esterase (Negative) Blood Type Cancelled Gel Antibody Screen Cancelled Rhogam Indicated 12/13/19 12/13/19 Range/Units 12:45 14:35 WBC (3.98-10.04) K/mm3 RBC (3.98-5.22) M/mm3 Hgb (11.2-15.7) gm/dl Hct (34.1-44.9) % MCV (79.4-94.8) fl MCH (25.6-32.2) pg MCHC (32.2-35.5) g/dl RDW Std Deviation (36.4-46.3) fL Plt Count (182-369) K/mm3 MPV (9.4-12.3) fl Neut % (Auto) (34.0-71.1) % Lymph % (Auto) (19.3-51.7) % [place] % (Auto) (4.7-12.5) % Eos % (Auto) (0.7-5.8) Baso % (Auto) (0.1-1.2) % Neut # (Auto) (1.56-6.13) K/mm3 Lymph # (Auto) (1.18-3.74) K/mm3 [place] # (Auto) (0.24-0.36) K/mm3 Eos # (Auto) (0.04-0.36) K/mm3 Baso # (Auto) (0.01-0.08) K/mm3 Manual Slide Review Sodium (136-145) mEq/L Potassium (3.5-5.1) mEq/L Chloride (98-107) mEq/L Carbon Dioxide (21-32) mEq/L Anion Gap (5-15) BUN (7-18) mg/dL Creatinine (0.55-1.02) mg/dL Est Cr Clr Drug Dosing mL/min Estimated GFR (MDRD) (>60) mL/min BUN/Creatinine Ratio (14-18) Glucose (74-106) mg/dL Calcium (8.5-10.1) mg/dL Total Bilirubin (0.2-1.0) mg/dL AST (15-37) U/L ALT (14-59) U/L Alkaline Phosphatase (46-116) U/L Total Protein (6.4-8.2) g/dl Albumin (3.4-5.0) g/dl Globulin gm/dL Albumin/Globulin Ratio (1-2) HCG, Quant mIU/mL Urine Color Yellow (Yellow) Urine Appearance Slt cloudy H (Clear) Urine pH 6.5 (5.0-8.0) Ur Specific [place] 1.025 (1.005-1.030) Urine Protein Negative (Negative) Urine Glucose (UA) Trace H (Negative) Urine Ketones Negative (Negative) Urine Occult Blood 2+ H (Negative) Urine Nitrite Negative (Negative) Urine Bilirubin Negative (Negative) Urine Urobilinogen 1.0 (0.2-1.0) Ur Leukocyte Esterase Negative (Negative) Blood Type O NEGATIVE Gel Antibody Screen Negative Rhogam Indicated Yes Meds: Medications Generic Name Dose Route Start Last Admin Trade Name Freq PRN Reason Stop Dose Admin Sodium Chloride 10 ml 12/13/19 12:54 12/13/19 14:03 Saline Flush FLUSH 10 ml ASDIRECTED PRN Administration Keep Vein Open - Re-Assessments/Exams Free Text/Narrative Re-Assessment/Exam: 12/13/19 15:03 Hematology was significant for WBC elevated at 15.52, sodium 133, glucose 116, total bili 1.6, hCG appropriately elevated at 148,661. Urinalysis was negative for infection. Ultrasound showed a single intrauterine gestation measuring 11 weeks 2 days. Heart rate 172. There is a minimal subchorionic hemorrhage present. Pelvic exam showed a closed cervical office with scant amount of active bleeding. Discussed with patient that the likely cause of her bleeding is the subchorionic hemorrhage. She is O-, therefore RhoGam will be given today. Recommend that she follow-up with her CLINICAL LABORATORY SCIENTIST at her next available appointment. Return to ER for any worsening or concerning symptoms. Discharge instructions as documented. Departure - Departure Time of Disposition: 15:03 Disposition: Home, Self-Care 01 Condition: Good Clinical Impression: Subchorionic hemorrhage Qualifiers: Fetus number: single or unspecified fetus Trimester: first trimester Qualified Code(s): O41.8X10 - Other specified disorders of amniotic fluid and membranes, first trimester, not applicable or unspecified; O46.8X1 - Other antepartum hemorrhage, first trimester - Discharge Information *PRESCRIPTION DRUG MONITORING PROGRAM REVIEWED*: No *COPY OF PRESCRIPTION DRUG MONITORING REPORT IN PATIENT [place]: No Instructions: Subchorionic Hematoma Referrals: Tana Bee MD [Primary Care Provider] - Forms: ED Department Discharge Additional Instructions: You were seen in the emergency department today for vaginal bleeding in early . Your work-up included blood work, urinalysis, and an ultrasound. Results of your work-up showed that you have a small subchorionic hemorrhage which is likely the cause of your bleeding. There is no sign that you are actively miscarrying, however this does increase the possibility of a miscarriage in the future. Bleeding associated with a subchorionic hemorrhage will generally resolve over the course of a few days. Because your blood type is O-, you did receive an injection of RhoGam today. If the bleeding should become significant enough to where you are saturating a pad an hour for 2 or more hours, or you experience any other symptoms of concern, would recommend that you return to the emergency department. It is recommended that you contact your CLINICAL LABORATORY SCIENTIST to schedule a follow-up at her next available visit to discuss today's occurrences. Return to the ER as needed. Sepsis Event Note (ED) - Evaluation Sepsis Screening Result: No Definite Risk - Focused Exam Vital Signs: Vital Signs Temp Pulse Resp BP Pulse Ox 12/13/19 12:46 98.4 F 88 16 121/67 97 - My Orders Last 24 Hours: My Active Orders 12/13/19 12:54 Sodium Chloride 0.9% [Saline Flush] 10 ml FLUSH ASDIRECTED PRN Peripheral IV Insertion Adult [OM.PC] Stat 12/13/19 12:55 Peripheral IV Care [RC] . DIRECTED 12/13/19 13:33 Pelvic Exam, Set Up [RC] ASDIRECTED 12/13/19 14:35 UA W/MICROSCOPIC [URIN] Stat - Assessment/Plan Last 24 Hours: My Active Orders 12/13/19 12:54 Sodium Chloride 0.9% [Saline Flush] 10 ml FLUSH ASDIRECTED PRN Peripheral IV Insertion Adult [OM.PC] Stat 12/13/19 12:55 Peripheral IV Care [RC] . DIRECTED 12/13/19 13:33 Pelvic Exam, Set Up [RC] ASDIRECTED 12/13/19 14:35 UA W/MICROSCOPIC [URIN] Stat
--- NOTE | 2019-12-13 14:09 | US ---
1st trimester obstetrical ultrasound: Multiple real-time images were obtained transabdominally. Comparison: No previous obstetrical imaging for current is available. Dates: Current ultrasound: JODI 07/01/20, gestational age 11 weeks 2 days Single intrauterine gestation is seen. Amniotic fluid volume is normal. Embryo is identified. Minimal subchorionic hemorrhage is noted. Maternal ovaries are seen which appear within normal limits. Measurements: [place]-rump length: 4.35 cm - 11 weeks 2 days Heart rate: 172 bpm Impression: 1. Single intrauterine gestation. Dates as noted above. 2. Minimal subchorionic hemorrhage. Diagnostic code #3 This report was dictated in MDT
== END 2019-12-13 15:20 | disposition home or self-care (01) ==
LOC: JD.ED 12:33
DX: O20.8 Other hemorrhage in early pregnancy (principal); Z3A.11 11 weeks gestation of pregnancy
CPT/HCPCS: 36415; 76801; 80053; 81001; 84702; 85025; 86850; 86900; 86901; 99284; J2790

== ENCOUNTER 2020-06-01 09:41 | Inpatient (IN) | payer OTHER ==
[~2020-06-01 09:41] MED LIST: Bupivacaine 0.25% 10 ML SDV ONE
[2020-06-01] MEDS ORDERED: Nalbuphine 10 MG/1 ML Vial IVPUSH PRN (10:21)
[2020-06-01] MEDS ORDERED: Ondansetron 4 MG/2 ML SDV IVPUSH PRN (10:21)
[2020-06-01] MEDS ORDERED: Sodium Chloride 0.9% 10 ML Syringe FLUSH PRN (10:21)
[2020-06-01] MEDS ORDERED: Oxytocin/Lactated Ringers 10 UNIT/1,000 ML BAG IV SCH (10:30)
[2020-06-01] MEDS: Lactated Ringers 1,000 ML IV SCH ×3 (10:36→13:09)
[2020-06-01] MEDS ORDERED: fentaNYL 100 MCG/2 ML SDV EPIDUR PRN (10:44)
[2020-06-01] MEDS ORDERED: Bupivacaine/fentaNYL/NS 100 ML Bag EPIDUR PRN (10:44)
[2020-06-01] MEDS ORDERED: ePHEDrine 50 MG/ML SDV IVPUSH PRN (10:44)
[2020-06-01] MEDS ORDERED: diphenhydrAMINE 50 MG/ML SDV IVPUSH PRN (10:44)
[2020-06-01] MEDS ORDERED: Ampicillin 2 GM in Sodium Chloride 0.9% 100 ML IV ONE (10:47)
[2020-06-01] MEDS ORDERED: Ampicillin 2 GM AdvVial IV ONE (10:49)
--- NOTE | 2020-06-01 11:04 | PCM.LDHP ---
L&D History of Present Illness - General Date of Service: 06/01/20 Admit Problem/Dx: Patient Status Order with Admit Dx/Problem 06/01/20 09:50 Patient Status [ADT] Routine 06/01/20 10:21 Patient Status [ADT] Routine Admission Diagnosis/Problem Admission Diagnosis/Problem 06/01/20 10:51 Delicia is a 24-year-old 2 para 1-0-0-1 white female who is evaluated in labor and delivery at 35-5/7 weeks gestational age with an JODI of 07/01/2020 for complaints of SROM clear amniotic fluid and contractions. AmniSure has returned positive and patient has advanced cervical dilation of 5+ centimeters, 80% effaced, -2 station, bag of epps still present, anterior position, cervix soft and cephalic presentation. Source of Information: Patient History Limitations: Reports: No Limitations - History of Present Illness Introduction:: Delicia is a 24-year-old 2 para 1-0-0-1 white female who is evaluated in labor and delivery at 35-5/7 weeks gestational age with an JODI of 07/01/2020 for complaints of SROM clear amniotic fluid and contractions. AmniSure has returned positive and patient has advanced cervical dilation of 5+ centimeters, 80% effaced, -2 station, bag of epps still present, anterior position, cervix soft and cephalic presentation. Reports that leakage of fluid started last even ing continued with small amounts intermittently occurring. She started contractions within the last 1 to 2 hours. He has been active. REHABILITATION MEDICINE PHYSICIAN history: Delicia is a 2 para 1-0-0-1. Patient had normal menarche at approximately age 13. Cycles are regular. Her working JODI of 07/01/2020 was based upon an exact certain LMP starting 09/25/2019 and supported by ultrasounds during the . Her previous obstetric history includes delivery of a female at 37 weeks gestational age approximately 13 months prior to this date. She denied any abnormal Pap smears or STIs. course. Patient was seen for her first visit on 12/05/2019 at 10-1/7 weeks. She was seen on a regular basis throughout the . Her weight gain was from 120 to 147 pounds and fundal height growth was appropriate. Vital signs remained stable throughout the . Laboratory testing in showed her to be O- with a negative antibody screen. First hemoglobin was 12.9 g/dL and platelets are 332,000. She is rubella immune. RPR was nonreactive. Hepatitis B surface antigen and hepatitis C assays were both negative. Chlamydia and gonorrhea tests were both negative. TSH at prior to the on 09/28/2018 was normal at 0.81 microunits/mL. Her 1 hour GTT was elevated at 155 mg/dL but her 3-hour glucose tolerance test was normal. Second trimester hemoglobin is 11.3 g/dL. Platelets are 333,000. Group B strep screen has not been performed. Allergies: None Medications: 1. vitamins Past medical history: 1. : 13 months ago 2. 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 3. reports history of renal lithiasis. Past surgical history: 1. Tonsillectomy Family history: Mother and father are alive and well. Patient has 5 half siblings all are alive and well. Maternal grandmother is alive and well. Maternal grandfather is at a relatively young agepatient thinks it might have been an CT. Paternal grandmother with history of cardiac arrhythmia. Paternal grandfather with diabetes and heart disease. Maternal aunt with cervical cancer. Paternal aunt with cervical cancer. Kidney disease in a paternal uncle along with hypertension and diabetes. No , bleeding, blood clotting or anesthesia problems noted in the family. Social history: Patient is . is Real. 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 She does not use any significant muscle alcohol, drugs or tobacco. Review of systems: In general patient has no complaints other than the leakage of fluid and the new onset contractions within the last couple hours. Skin: Negative Lungs: No infectious symptoms or shortness of breath Cardiovascular: No chest pain or exercise intolerance Breasts: No lumps, changes in size, pain, dimpling, discharge or axillary or supraclavicular concerns. GI: Negative : Body habitus changes associated with Musculoskeletal: Negative Neurological: Negative Physical exam: In general the patient is well-developed, well-nourished, pleasant female of stated age in no acute distress. She does stop talking during contractions which indicates at least moderate intensity. Skin is warm dry without lesions. HEENT, neck and back within normal limits. Lungs are clear with good breath sounds in all lung kothari. Cardiovascular exam shows regular and rhythm without murmurs. Breast exam deferred. Patient plans to breast-feed. Abdomen is gravid with fundal height consistent with 36-week . Genital per digital exam shows cervix at 5+ centimeters, 80% effaced, anterior, bag of epps is still palpated, no umbilical cord is felt, cervix is soft and head is at a -2 station. Patient has bloody show. Extremities and neurological exam are grossly within normal limits. - Related Data Allergies/Adverse Reactions: Allergies Allergy/AdvReac Type Severity Reaction Status Date / Time No Known Allergies Allergy Verified 08/01/19 00:28 Home Medications: Home Meds Calcium Carbonate [Tums] 06/01/20 [History] Past Medical History REHABILITATION MEDICINE PHYSICIAN History: Reports: - Past Surgical History HEENT Surgical History: Reports: Tonsillectomy Social & Family History - Family History Family Medical History: Unobtainable - Caffeine Use Caffeine Use: Reports: Coffee - Living Situation & Occupation Living situation: Reports: Single, with Significant Other (Fianc), with Family (Daughter) Occupation: Employed (commercial marketing specialist, [employer]) H&P Review of Systems - Review of Systems: Review Of Systems: See Below L&D Exam - Exam Exam: See Below - Vital Signs Weight: 66.497 kg - Patient Data Lab Results Last 24 hrs: Laboratory Results - last 24 hr 06/01/20 06/01/20 Range/Units 09:50 10:30 WBC 16.34 H (3.98-10.04) K/mm3 RBC 4.28 (3.98-5.22) M/mm3 Hgb 10.7 L D (11.2-15.7) gm/dl Hct 34.5 (34.1-44.9) % MCV 80.6 D (79.4-94.8) fl MCH 25.0 L (25.6-32.2) pg MCHC 31.0 L (32.2-35.5) g/dl RDW Std Deviation 40.8 (36.4-46.3) fL Plt Count 309 (182-369) K/mm3 MPV 11.4 (9.4-12.3) fl Neut % (Auto) 73.0 H (34.0-71.1) % Lymph % (Auto) 16.8 L (19.3-51.7) % [place] % (Auto) 7.6 (4.7-12.5) % Eos % (Auto) 1.5 (0.7-5.8) Baso % (Auto) 0.3 (0.1-1.2) % Neut # (Auto) 11.92 H (1.56-6.13) K/mm3 Lymph # (Auto) 2.75 (1.18-3.74) K/mm3 [place] # (Auto) 1.25 H (0.24-0.36) K/mm3 Eos # (Auto) 0.24 (0.04-0.36) K/mm3 Baso # (Auto) 0.05 (0.01-0.08) K/mm3 Membrane Rupture Positive H Result Diagrams: 06/01/20 10:30 Problem List Initiated/Reviewed/Updated: Yes Orders Last 24hrs: Active Orders 24 hr Category Date Time Status Patient Status [ADT] Routine ADT 06/01/20 10:21 Active Activity as Tolerated [RC] PFP Care 06/01/20 10:21 Active Communication Order [RC] ASDIRECTED Care 06/01/20 10:21 Active Heart Tones [RC] ASDIRECTED Care 06/01/20 10:21 Active Non Stress Test [RC] PER UNIT ROUTINE Care 06/01/20 09:50 Active Notify Provider [RC] ASDIRECTED Care 06/01/20 10:44 Active Notify Provider [RC] PFP Care 06/01/20 10:21 Active Notify Provider [RC] PRN Care 06/01/20 10:21 Active Peripheral IV Care [RC] . DIRECTED Care 06/01/20 10:21 Active Vital Signs [RC] PER UNIT ROUTINE Care 06/01/20 09:50 Active Regular Diet [DIET] Diet 06/01/20 Lunch Active BLOOD BANK HOLD SPECIMEN [BBK] Stat Lab 06/01/20 10:21 Ordered CORONAVIRUS COVID-19 BARBARA [MOLEC] Stat Lab 06/01/20 10:30 Received RAPID PLASMA REAGIN,RPR [CHEM] Routine Lab 06/01/20 10:30 Received Ampicillin 1 gm Med 06/01/20 15:00 Active Sodium Chloride 0.9% [Normal Saline] 100 ml IV Q4H Ampicillin 2 gm Med 06/01/20 10:47 Active Sodium Chloride 0.9% [Normal Saline] 100 ml IV ONETIME Bupivacaine/fentaNYL/NS [fentaNYL/Bupivacaine/NS 2 MCG- Med 06/01/20 10:44 Active 0.125% 100 ML] 100 ml EPIDUR ASDIRECTED PRN Lactated Ringers [Ringers, Lactated] 1,000 ml Med 06/01/20 10:30 Active IV ASDIRECTED Nalbuphine [Nubain] Med 06/01/20 10:21 Active 10 mg IVPUSH Q2H PRN Ondansetron [Zofran] Med 06/01/20 10:21 Active 4 mg IVPUSH Q4H PRN Oxytocin/Lactated Ringers [Pitocin in LR 10 Units/1,000 Med 06/01/20 10:30 Active ML] 10 unit in 1,000 ml IV .CONTINUOUS Sodium Chloride 0.9% [Saline Flush] Med 06/01/20 10:21 Active 10 ml FLUSH ASDIRECTED PRN diphenhydrAMINE [Benadryl] Med 06/01/20 10:44 Active 25 mg IVPUSH Q6H PRN ePHEDrine [ePHEDrine sulfate] Med 06/01/20 10:44 Active 5 mg IVPUSH ASDIRECTED PRN fentaNYL [Sublimaze] Med 06/01/20 10:44 Active 100 mcg EPIDUR Q3H PRN Electronic Heart Tones Ext w TOCO [WOMSER] Oth 06/01/20 10:21 Ordered Routine Electronic Heart Tones Internal [WOMSER] Per Unit Oth 06/01/20 10:21 Ordered Routine Peripheral IV Insertion Adult [OM.PC] Routine Oth 06/01/20 10:21 Ordered Resuscitation Status Routine Resus Stat 06/01/20 09:50 Ordered Medication Orders Diphenhydramine HCl (Benadryl) 25 mg IVPUSH Q6H PRN PRN Reason: pruritis Ephedrine Sulfate (Ephedrine Sulfate) 5 mg IVPUSH ASDIRECTED PRN PRN Reason: Hypotension Fentanyl (Sublimaze) 100 mcg EPIDUR Q3H PRN PRN Reason: Pain Fentanyl/Bupivacaine HCl (Fentanyl/Bupivacaine/Ns 2 Mcg-0.125% 100 Ml) 100 ml EPIDUR ASDIRECTED PRN PRN Reason: Pain Lactated Ringer's (Ringers, Lactated) 1,000 mls @ 100 mls/hr IV ASDIRECTED MERVIN Last Admin: 06/01/20 10:36 Dose: 999 mls/hr Documented by: BRYCE Oxytocin/Lactated Ringer's (Pitocin In Lr 10 Units/1,000 Ml) 10 unit in 1,000 mls @ 500 mls/hr IV .CONTINUOUS MERVIN Ampicillin Sodium 2 gm/ Sodium (Chloride) 100 mls @ 200 mls/hr IV ONETIME ONE Stop: 06/01/20 11:16 Ampicillin Sodium 1 gm/ Sodium (Chloride) 100 mls @ 200 mls/hr IV Q4H MERVIN Nalbuphine HCl (Nubain) 10 mg IVPUSH Q2H PRN PRN Reason: Pain Ondansetron HCl (Zofran) 4 mg IVPUSH Q4H PRN PRN Reason: Nausea/Vomiting Sodium Chloride (Saline Flush) 10 ml FLUSH ASDIRECTED PRN PRN Reason: Keep Vein Open Assessment/Plan Comment:: 1. 35-5/7-week intrauterine , spontaneous rupture of membranes with positive AmniSure, active labor with contractions moderate intensity every 3 minutes, advanced cervical dilation of 5+ centimeters. 2. Unknown group B strep status because of gestational age-places patient as a candidate for empirical prophylactic group B strep therapy with ampicillin per protocol 3. Patient plans to breast-feed 4. Patient desires epidural in labor 5. Relatively low risk Plan: 1. Anticipate normal spontaneous vaginal delivery 2. Epidural per patient desire 3. Routine labor care 4. Laboratory testing consist of Covid19 testing, CBC, RPR per protocol 5. Support breast-feeding plan.
--- NOTE | 2020-06-01 11:30 | PCM.PREANE ---
Preanesthetic Assessment - Procedure Proposed Procedure: Labor Epidural - Anesthesia/Transfusion/Family Hx Anesthesia History: Prior Anesthesia Without Reaction Family History of Anesthesia Reaction: No Transfusion History: No Prior Transfusion(s) Intubation History: Unknown - Review of Systems General: No Symptoms Pulmonary: No Symptoms Cardiovascular: No Symptoms Gastrointestinal: Other (GERD with ) Neurological: No Symptoms Other: Reports: None (COVID +) - Physical Assessment Vital Signs: 98% 121/75 82 18 Height: 1.68 m Weight: 66.497 kg ASA Class: 2 Mental Status: Alert & Oriented x3 Airway Class: Mallampati = 1 Dentition: Reports: Normal Dentition Thyro-Mental Finger Breadths: 3 Mouth Opening Finger Breadths: 3 ROM/Head Extension: Full Lungs: Clear to Auscultation, Normal Respiratory Effort Cardiovascular: Regular Rate, Regular Rhythm - Lab Values: Laboratory Last Values WBC 16.34 K/mm3 (3.98-10.04) H 06/01/20 10:30 RBC 4.28 M/mm3 (3.98-5.22) 06/01/20 10:30 Hgb 10.7 gm/dl (11.2-15.7) L D 06/01/20 10:30 Hct 34.5 % (34.1-44.9) 06/01/20 10:30 MCV 80.6 fl (79.4-94.8) D 06/01/20 10:30 MCH 25.0 pg (25.6-32.2) L 06/01/20 10:30 MCHC 31.0 g/dl (32.2-35.5) L 06/01/20 10:30 RDW Std Deviation 40.8 fL (36.4-46.3) 06/01/20 10:30 Plt Count 309 K/mm3 (182-369) 06/01/20 10:30 MPV 11.4 fl (9.4-12.3) 06/01/20 10:30 Neut % (Auto) 73.0 % (34.0-71.1) H 06/01/20 10:30 Lymph % (Auto) 16.8 % (19.3-51.7) L 06/01/20 10:30 [place] % (Auto) 7.6 % (4.7-12.5) 06/01/20 10:30 Eos % (Auto) 1.5 (0.7-5.8) 06/01/20 10:30 Baso % (Auto) 0.3 % (0.1-1.2) 06/01/20 10:30 Neut # (Auto) 11.92 K/mm3 (1.56-6.13) H 06/01/20 10:30 Lymph # (Auto) 2.75 K/mm3 (1.18-3.74) 06/01/20 10:30 [place] # (Auto) 1.25 K/mm3 (0.24-0.36) H 06/01/20 10:30 Eos # (Auto) 0.24 K/mm3 (0.04-0.36) 06/01/20 10:30 Baso # (Auto) 0.05 K/mm3 (0.01-0.08) 06/01/20 10:30 Membrane Rupture Positive H 06/01/20 09:50 SARS-CoV-2 RNA (BARBARA) Positive (NEGATIVE) H 06/01/20 10:30 - Allergies Allergies/Adverse Reactions: Allergies Allergy/AdvReac Type Severity Reaction Status Date / Time No Known Allergies Allergy Verified 08/01/19 00:28 - Acknowledgements Anesthesia Type Planned: Epidural Pt an Appropriate Candidate for the Planned Anesthesia: Yes Alternatives and Risks of Anesthesia Discussed w Pt/Guardian: Yes Pt/Guardian Understands and Agrees with Anesthesia Plan: Yes PreAnesthesia Questionnaire [employer] History: Reports: - Past Surgical History HEENT Surgical History: Reports: Tonsillectomy - HOME MEDS Home Medications: Home Meds Ondansetron [Zofran ODT] 1 tab PO Q8H PRN #10 tab.dis 08/01/19 [Rx] - CURRENT (IN HOUSE) MEDS Current Meds: Current Medications Diphenhydramine HCl (Benadryl) 25 mg IVPUSH Q6H PRN PRN Reason: pruritis Ephedrine Sulfate (Ephedrine Sulfate) 5 mg IVPUSH ASDIRECTED PRN PRN Reason: Hypotension Fentanyl (Sublimaze) 100 mcg EPIDUR Q3H PRN PRN Reason: Pain Last Admin: 06/01/20 10:55 Dose: 100 mcg Documented by: Fentanyl/Bupivacaine HCl (Fentanyl/Bupivacaine/Ns 2 Mcg-0.125% 100 Ml) 100 ml EPIDUR ASDIRECTED PRN PRN Reason: Pain Last Admin: 06/01/20 10:55 Dose: 100 ml Documented by: Lactated Ringer's (Ringers, Lactated) 1,000 mls @ 100 mls/hr IV ASDIRECTED MERVIN Last Admin: 06/01/20 11:09 Dose: 500 mls/hr Documented by: Oxytocin/Lactated Ringer's (Pitocin In Lr 10 Units/1,000 Ml) 10 unit in 1,000 mls @ 500 mls/hr IV .CONTINUOUS MERVIN Ampicillin Sodium 1 gm/ Sodium (Chloride) 100 mls @ 200 mls/hr IV Q4H MERVIN Nalbuphine HCl (Nubain) 10 mg IVPUSH Q2H PRN PRN Reason: Pain Ondansetron HCl (Zofran) 4 mg IVPUSH Q4H PRN PRN Reason: Nausea/Vomiting Sodium Chloride (Saline Flush) 10 ml FLUSH ASDIRECTED PRN PRN Reason: Keep Vein Open Discontinued Medications Ampicillin Sodium (Ampicillin) Confirm Administered Dose 2 gm IV .STK-MED ONE Stop: 06/01/20 10:50 Ampicillin Sodium 2 gm/ Sodium (Chloride) 100 mls @ 200 mls/hr IV ONETIME ONE Stop: 06/01/20 11:16 Last Admin: 06/01/20 10:54 Dose: 200 mls/hr Documented by:
[2020-06-01] MEDS ORDERED: Witch Hazel Medicated Pads 40/Jar TOP PRN (14:26)
[2020-06-01] MEDS ORDERED: Benzocaine/Menthol 20%-0.5% Spray 56 GM Canister TOP PRN (14:26)
[2020-06-01] MEDS ORDERED: Acetaminophen 325 MG Tab PO PRN (14:26)
[2020-06-01] MEDS ORDERED: Docusate Sodium 100 MG Cap PO PRN (14:26)
--- NOTE | 2020-06-01 14:35 | PCM.SN.2 ---
- Free Text/Narrative Note: Delivery note: Delicia is a 24-year-old 2 para 1-1-0-2 white female who is evaluated in labor and delivery at 35-5/7 weeks gestational age with an JODI of 07/01/2020 for complaints of SROM clear amniotic fluid and contractions. AmniSure has returned positive and patient has advanced cervical dilation of 5+ centimeters, 80% effaced, -2 station, bag of epps still present, anterior position, cervix soft and cephalic presentation. Reports that leakage of fluid started last evening continued with small amounts intermittently occurring. She started contractions within the 1 to 2 hours prior to admission. The baby had been been active. She was found to be COVID-19 positive and isolation precautions were implemented per protocol. Epidural analgesia was desired and was accomplished. heart tones generally were good with exception of 1 or 2 decelerations and short bradycardias with last 1 associated with hypotension related to the epidural. Both recovered quickly. Bag epps was still palpated and complete rupture membranes was accomplished with resultant clear amniotic fluid. Patient re ceived ampicillin 2 g IV prophylactically as group B strep status was unknown because of gestational age. Patient progressed steadily and at approximately 1340 hrs. on 06/01/2020 patient became complete and was feeling significant pressure. Baby's head was noted to be at a +3 station. Patient pushed x1 contractions delivered a viable, pires, male infant with Apgars of 8/8, a weight of 2940 g (6 pounds 7.7 ounces) and a length of 18-3/4 inches in a direct occiput anterior position. There was a nuchal cord which was moderately tight x1 and was reduced over the baby's body. The baby was placed on mom's abdomen. Pitocin was increased to 500 cc/h to facilitate increase uterine tone and decrease likelihood of bleeding. Cord blood was obtained. Perineum was inspected as was the vagina and no significant lacerations were noted. No suturing was necessary. The center delivered spontaneously in a Vigil presentation, appeared intact and complete and was discarded. There was an area of brown old clot adherent to the membranes which is most likely consistent with her early history of vaginal bleeding secondary to probable subchorionic hemorrhage. Epidural catheter was removed without problems. Estimated blood loss was 200 cc. Condition: Good. Patient plans to breast-feed.
[2020-06-01] MEDS ORDERED: Ampicillin 1 GM in Sodium Chloride 0.9% 100 ML IV SCH (15:00)
[2020-06-01] MEDS: Ibuprofen 600 MG Tab PO PRN (20:26)
[2020-06-02] MEDS: Ibuprofen 600 MG Tab PO PRN ×3 (01:26→20:23)
--- NOTE | 2020-06-02 06:17 | PCM.SN.2 ---
- Free Text/Narrative Note: day #1. note: Patient is doing well in the period. Minimal lochia, voiding well, a mbulated without problems. Nursing without concerns. Covid precautions taken. Baby is doing very well. Nursing without problems. Patient is afebrile, vital signs are stable Abdomen is flat, soft, uterus is below the umbilicus and is firm and nontender. Legs are nontender. Assessment: recovery going well. Plan: Routine care. Patient be discharged home within the next 24-48 hours. Baby to be discharged as is appropriate by pediatrics.
[2020-06-02] MEDS: Prenatal Multivitamin with Calcium/Folic Acid/Iron Tab PO SCH (10:07)
--- NOTE | 2020-06-02 12:08 | PCM48HPAN ---
Post Anesthesia Note - EVALUATION WITHIN 48HRS OF ANESTHETIC Vital Signs in Normal Range: Yes Patient Participated in Evaluation: Yes Respiratory Function Stable: Yes Airway Patent: Yes Cardiovascular Function Stable: Yes Hydration Status Stable: Yes Pain Control Satisfactory: Yes Nausea and Vomiting Control Satisfactory: Yes Mental Status Recovered: Yes Vital Signs: Last Vital Signs Temp 36.8 C 06/02/20 09:16 Pulse 86 06/02/20 09:16 Resp 15 06/02/20 09:16 BP 111/58 L 06/02/20 09:16 Pulse Ox 97 06/02/20 09:16
[2020-06-03] MEDS: Ibuprofen 600 MG Tab PO PRN ×2 (03:56→08:46)
--- NOTE | 2020-06-03 07:19 | PCM.DCSUM1 ---
Discharge Summary - Hospital Course Free Text/Narrative:: Delicia is a 24-year-old now 2 para 1-1-0-2 white female who was evaluated in labor and delivery on 06/01/2020 at 35-5/7 weeks gestational age with an JODI of 07/01/2020 for complaints of SROM clear amniotic fluid and contractions. AmniSure returned positive and patient had advanced cervical dilation of 5+ centimeters, 80% effaced, -2 station, bag of epps still present but leaking, anterior position, cervix soft and cephalic presentation. She reported that leakage of fluid started the evening evening before and continued with small amounts intermittently occurring. She started contractions within the 1 to 2 hours prior to admission. The baby had been active. She was found to be COVID- 19 positive and isolation precautions were implemented per protocol. Epidural analgesia was desired and was accomplished. heart tones generally were good with exception of 1 or 2 decelerations and short bradycardias with last 1 associated with hypotension related to the epidural. Both recovered quickly. Bag epps was still palpated and complete rupture membranes was accomplished with resultant clear amniotic fluid. Patient received ampicillin 2 g IV prophylactically as group B strep status was unknown because of gestational age. Patient progressed steadily and at approximately 1340 hrs. on 06/01/2020 patient became complete and was feeling significant pressure. Baby's head was noted to be at a +3 station. Patient pushed x1 contractions delivered a viable, pires, male infant with Apgars of 8/8, a weight of 2940 g (6 pounds 7.7 ounces) and a length of 18-3/4 inches in a direct occiput anterior position. There was a nuchal cord which was moderately tight x1 and was reduced over the baby's body. The baby was placed on mom's abdomen. Pitocin was increased to 500 cc/h to facilitate increase uterine tone and decrease likelihood of bleeding. Cord blood was obtained. Perineum was inspected as was the vagina and no significant lacerations were noted. No suturing was necessary. The center delivered spontaneously in a Vigil presentation, appeared intact and complete and was discarded. There was an area of brown old clot adherent to the membranes which is most likely consistent with her early history of vaginal bleeding secondary to probable subchorionic hemorrhage. Epidural catheter was removed without problems. Estimated blood loss was 200 cc. Condition: Good. Patient plans to breast-feed. Covid19 precautions and isolation were implemented. She had an unremarkable recovery. Baby has done very well. She is breast- feeding but with some formula supplementation. She is desiring discharge home. Pediatrics has yet to see the baby but is considering possible discharge today. Discharge instructions given to the patient. She will follow up with Dr. Bee in clinic . Diagnosis: Stroke: No - Discharge Data Discharge Date: 06/03/20 Discharge Disposition: Home, Self-Care 01 Condition: Good - Referral to Home Health Primary Care Physician: Tana Bee MD - Patient Instructions Diet: Regular Diet as Tolerated (Nursing diet with increased calories and calcium as recommended) Activity: As Tolerated (No intercourse or tampons until bleeding resolves) Driving: May Drive Today Showering/Bathing: May Shower (May take a bath) Notify Provider of: Fever, Increased Pain, Swelling and Redness, Nausea and/or Vomiting - Discharge Plan Home Medications: Home Meds Calcium Carbonate [Tums] 06/01/20 [History] Acetaminophen [Tylenol] 650 mg PO Q4H PRN tablet 06/03/20 [Rx] Ibuprofen [Motrin] 600 mg PO Q4H PRN tablet 06/03/20 [Rx] Vit with Ca/FA/Iron [ Plus Iron] 1 each PO DAILY tablet 12/14 [Rx] Referrals: Tana Bee MD [Primary Care Provider] - (Patient to call [facility] for follow-up appointment with Dr. Bee.) - Discharge Summary/Plan Comment DC Time >30 min.: No Discharge Summary/Plan Comment: Discharge instructions: 1. Discharge home 2. Diet, activity and follow-up discussed with patient. Recommend nursing diet with increased calories and calcium. 3. Precautions given concern increased pain, bleeding, temperature, signs/symptoms of DVT/PE. 4. Medications per home medication was printed, discussed with and given to the patient. 5. Return to clinic-Dr. Beepatient to call clinic for appointment. Diagnosis: 1. 35-5/7-week -SROM ( premature rupture of membranes), active labordelivered Condition: Good - Patient Data Vitals - Most Recent: Last Vital Signs Temp 37.1 C 06/03/20 03:54 Pulse 78 06/03/20 03:54 Resp 14 06/03/20 03:54 BP 113/57 L 06/03/20 03:54 Pulse Ox 98 06/03/20 03:54 Weight - Most Recent: 66.497 kg I&O - Last 24 hours: Intake & Output 06/02/20 06/03/20 06/03/20 22:59 06:59 14:59 Intake Total 650 Balance 650 Med Orders - Current: Current Medications Acetaminophen (Tylenol) 650 mg PO Q4H PRN PRN Reason: mild pain or fever Benzocaine/Menthol (Dermoplast Pain Relief [place]) 0 gm TOP ASDIRECTED PRN PRN Reason: Perineal Comfort Measure Last Admin: 06/01/20 15:34 Dose: 1 can Documented by: Docusate Sodium (Colace) 100 mg PO BID PRN PRN Reason: Constipation Ibuprofen (Motrin) 600 mg PO Q4H PRN PRN Reason: Mild pain or fever Last Admin: 06/03/20 03:56 Dose: 600 mg Documented by: Jerrodat Multivit/1St Grade Teacher/Iron/Folic Ac ( Plus Iron) 1 each PO DAILY MERVIN Last Admin: 06/02/20 10:07 Dose: Not Given Documented by: Artemio Villalpando ([facility]) 1 pad TOP ASDIRECTED PRN PRN Reason: Perineal Comfort Measure Last Admin: 06/01/20 15:34 Dose: 1 tub Documented by: Discontinued Medications Ampicillin Sodium (Ampicillin) Confirm Administered Dose 2 gm IV .STK-MED ONE Stop: 06/01/20 10:50 Last Admin: 06/01/20 12:38 Dose: Not Given Documented by: Diphenhydramine HCl (Benadryl) 25 mg IVPUSH Q6H PRN PRN Reason: pruritis Ephedrine Sulfate (Ephedrine Sulfate) 5 mg IVPUSH ASDIRECTED PRN PRN Reason: Hypotension Fentanyl (Sublimaze) 100 mcg EPIDUR Q3H PRN PRN Reason: Pain Last Admin: 06/01/20 10:55 Dose: 100 mcg Documented by: Fentanyl/Bupivacaine HCl (Fentanyl/Bupivacaine/Ns 2 Mcg-0.125% 100 Ml) 100 ml EPIDUR ASDIRECTED PRN PRN Reason: Pain Last Admin: 06/01/20 10:55 Dose: 100 ml Documented by: Lactated Ringer's (Ringers, Lactated) 1,000 mls @ 100 mls/hr IV ASDIRECTED MERVIN Last Admin: 06/01/20 13:09 Dose: 500 mls/hr Documented by: Oxytocin/Lactated Ringer's (Pitocin In Lr 10 Units/1,000 Ml) 10 unit in 1,000 mls @ 500 mls/hr IV .CONTINUOUS MERVIN Last Admin: 06/01/20 13:45 Dose: 500 mls/hr Documented by: Ampicillin Sodium 2 gm/ Sodium (Chloride) 100 mls @ 200 mls/hr IV ONETIME ONE Stop: 06/01/20 11:16 Last Admin: 06/01/20 10:54 Dose: 200 mls/hr Documented by: Ampicillin Sodium 1 gm/ Sodium (Chloride) 100 mls @ 200 mls/hr IV Q4H MERVIN Nalbuphine HCl (Nubain) 10 mg IVPUSH Q2H PRN PRN Reason: Pain Ondansetron HCl (Zofran) 4 mg IVPUSH Q4H PRN PRN Reason: Nausea/Vomiting Sodium Chloride (Saline Flush) 10 ml FLUSH ASDIRECTED PRN PRN Reason: Keep Vein Open
[2020-06-03] MEDS: Prenatal Multivitamin with Calcium/Folic Acid/Iron Tab PO SCH (08:46)
== END 2020-06-03 13:48 | disposition home or self-care (01) | DRG 805 ==
LOC: JD.OBCHECK 09:41 → JD.OB 10:25 → OBSVTOIN 13:42 → JD.OB 13:43
PROVIDERS: ADMIT Obstetrics & Gynecology; ATTEND Obstetrics & Gynecology
PROC: 10E0XZZ Delivery of Products of Conception, External Approach (ICD-10-PCS; principal; 2020-06-01)
PROC: 3E0R3BZ Introduction of Anesthetic Agent into Spinal Canal, Percutaneous Approach (ICD-10-PCS; 2020-06-01)
DX: O98.52 Other viral diseases complicating childbirth (principal); U07.1 COVID-19; Z37.0 Single live birth; Z3A.35 35 weeks gestation of pregnancy; O76 Abnormality in fetal heart rate and rhythm complicating labor and delivery; O69.1XX0 Labor and delivery complicated by cord around neck, with compression, not applicable or unspecified
CPT/HCPCS: 01967; 36415; 59025; 59409; 84112; 85025; 86592; A9270-GY; J0290; J2590; J3010; J3490; J7120; U0002